=== PATIENT | female | born 1985 | race American Indian/Alaskan Native ===

== ENCOUNTER 2016-09-25 10:15 | Emergency (ER) | payer MEDICAID ==
[2016-09-25 11:37] VITALS: BP 159/99
--- NOTE | 2016-09-25 13:53 | Emergency Department Report ---
ED General Adult HPI - General Chief complaint: Sore Throat Stated complaint: SORE THROAT Source: patient Mode of arrival: Ambulatory Limitations: No Limitations - History of Present Illness Initial comments: 31-year-old -[place] female comes in for complaint of sore throat that started yesterday. As well as a productive cough with white sputum that started yesterday. Patient denies any fevers chills denies any vomiting or diarrhea no difficulty swallowing or talking. Chest congestion she has been taken ibuprofen for pain. No recent travels no sick contact [facility] primary care provider Dr. Cathi Gonzales nurse practitioner. She has only a past medical history of asthma. - Related Data Previous Rx's Medication Instructions Recorded Last Taken Type Cetirizine HCl [ZyrTEC] 10 mg PO QDAY #30 capsule 09/25/16 Unknown Rx Ibuprofen [Motrin 600 MG tab] 600 mg PO Q8H PRN #30 tablet 09/25/16 Unknown Rx Allergies Allergy/AdvReac Type Severity Reaction Status Date / Time No Known Allergies Allergy Verified 09/25/16 11:35 ED Review of Systems ROS: Stated complaint: SORE THROAT Other details as noted in HPI Constitutional: denies: chills, fever ENT: throat pain Respiratory: cough Cardiovascular: denies: chest pain, palpitations Endocrine: no symptoms reported Gastrointestinal: denies: abdominal pain, nausea, diarrhea ED Past Medical Hx - Past Medical History Hx Hypertension: Yes (PIH in prev. pregnancies. Currently no meds.) Hx Asthma: Yes Additional medical history: BACK PAIN S/P EPIDURAL - Social History Smoking Status: Never Smoker Substance Use Type: None - Medications Home Medications: Home Medications Medication Instructions Recorded Confirmed Last Taken Type Cetirizine HCl [ZyrTEC] 10 mg PO QDAY #30 capsule 09/25/16 Unknown Rx Ibuprofen [Motrin 600 MG tab] 600 mg PO Q8H PRN #30 tablet 09/25/16 Unknown Rx ED Physical Exam - General Limitations: No Limitations General appearance: alert, in no apparent distress - Head Head exam: Present: atraumatic, normocephalic - Eye Eye exam: Present: normal appearance - ENT ENT exam: Present: mucous membranes moist, TM's normal bilaterally - Neck Neck exam: Present: normal inspection. Absent: tenderness, lymphadenopathy - Respiratory Respiratory exam: Present: normal lung sounds bilaterally. Absent: respiratory distress - Cardiovascular Cardiovascular Exam: Present: regular rate, normal rhythm. Absent: systolic murmur, diastolic murmur, rubs, gallop ED Course Vital Signs 09/25/16 11:30 Temperature 98.1 F Pulse Rate 69 Respiratory 18 Rate Blood Pressure 159/99 O2 Sat by Pulse 100 Oximetry ED Medical Decision Making - Medical Decision Making Patient been evaluated by this provider in fast track. Offer patient pain medication she declined. Discussed the patient that this is most likely allergies. Discussed the patient will place her on Zyrtec 10 mg by mouth daily she can take Motrin or Tylenol for pain and discomfort and follow up with her primary care provider which is Dr. Cathi Gonzales nurse practitioner. Critical care attestation.: If time is entered above; I have spent that time in minutes in the direct care of this critically ill patient, excluding procedure time. ED Disposition Clinical Impression: Seasonal allergies Qualifiers: Allergic rhinitis trigger: unspecified Qualified Code(s): J30.2 - Other seasonal allergic rhinitis Disposition: DISCHARGED TO HOME OR SELFCARE Is pt being admited?: No Does the pt Need Aspirin: No Condition: Stable Instructions: Allergies (ED) Additional Instructions: Take medication as prescribed. He can take Tylenol or Motrin for pain and discomfort. Follow up primary care provider if symptoms persist or gets worse. Prescriptions: Cetirizine HCl [ZyrTEC] 10 mg PO QDAY #30 capsule Ibuprofen [Motrin 600 MG tab] 600 mg PO Q8H PRN #30 tablet PRN Reason: Pain Referrals: NIDIA CHEW MD [Primary Care Provider] - 3-5 Days CATHI GONZALES MD [Referring] - 3-5 Days Forms: Work/School Release Form(ED)
== END 2016-09-25 15:02 | disposition home or self-care (01) ==
LOC: ED 10:15
DX: J30.2 Other seasonal allergic rhinitis (principal); I10 Essential (primary) hypertension; J45.909 Unspecified asthma, uncomplicated; Z98.890 Other specified postprocedural states
CPT/HCPCS: 99282